=== PATIENT | female | born 1950 | race Caucasian/White ===

== ENCOUNTER → 2016-05-28 | Outpatient (CLI) | payer BC ==
[~2016-05-28] MED LIST: ANTIVERT 25MG25 MG PO; MULTIPLE VITAMI1 CAP PO; NORCO 325 MG-51 TAB PO; PERCOCET 325 MG1 TA2 PO; PROMETHAZINE12.5 M5 PO
== END ==
LOC: MC.RAD 13:58
DX: Z12.31 Encounter for screening mammogram for malignant neoplasm of breast (principal); Z80.3 Family history of malignant neoplasm of breast

== ENCOUNTER → 2017-06-28 | Outpatient (CLI) | payer BC | LOC: MC.RAD 13:20 | DX: Z12.31 Encounter for screening mammogram for malignant neoplasm of breast (principal) ==

== ENCOUNTER → 2018-07-15 | Outpatient (CLI) | payer BC | LOC: MC.RAD 13:28 | DX: Z12.31 Encounter for screening mammogram for malignant neoplasm of breast (principal) ==

== ENCOUNTER 2018-11-18 14:42 | Outpatient (CLI) | payer BC ==
[~2018-11-18] VITALS: Ht 157.5 cm; Wt 55.0 kg
[2018-11-18] MEDS ORDERED: NORVASC 5MG5 MG/TAB PO (15:43)
[2018-11-18] MEDS ORDERED: HCTZ12.5TAB PO (15:43)
[2018-11-18 15:49] VITALS: BP 110/52; PULSE 62; TEMP 98.1
== END 2018-11-18 16:05 | disposition home or self-care (01) ==
LOC: EUO 14:42
DX: M81.0 Age-related osteoporosis without current pathological fracture (principal)
CPT/HCPCS: J3489

== ENCOUNTER → 2019-08-11 | Outpatient (CLI) | payer BC ==
[~2019-08-11] MED LIST changes: +HCTZ12.5TAB PO; +NORVASC 5MG5 MG/TAB PO
== END ==
LOC: MC.RAD 12:51
DX: Z12.31 Encounter for screening mammogram for malignant neoplasm of breast (principal)

== ENCOUNTER → 2019-10-06 | Outpatient (CLI) | payer BC | LOC: COL.RAD 06:57 | DX: M48.02 Spinal stenosis, cervical region (principal); M50.10 Cervical disc disorder with radiculopathy, unspecified cervical region ==

== ENCOUNTER 2019-12-23 14:55 | Outpatient (CLI) | payer BC ==
[~2019-12-23] VITALS: Ht 157.5 cm; Wt 57.8 kg
[2019-12-23] MEDS ORDERED: MOBIC 7.5MG7.5 MG PO (15:18)
[2019-12-23 15:28] VITALS: BP 156/74; PULSE 64; TEMP 98.6
== END 2019-12-23 16:02 | disposition home or self-care (01) ==
LOC: EUO 14:55
DX: M81.0 Age-related osteoporosis without current pathological fracture (principal)
CPT/HCPCS: J3489

== ENCOUNTER → 2020-08-24 | Outpatient (CLI) | payer BC ==
[~2020-08-24] MED LIST changes: +MOBIC 7.5MG7.5 MG PO; -MULTIPLE VITAMI1 CAP PO; +MULTIPLE VITAMI1 TA5 PO
== END ==
LOC: MC.RAD 12:49
DX: Z12.31 Encounter for screening mammogram for malignant neoplasm of breast (principal)

== ENCOUNTER 2020-12-08 15:32 | Outpatient (CLI) | payer BC ==
[~2020-12-08] VITALS: Ht 157.5 cm; Wt 57.6 kg
[2020-12-08 16:17] VITALS: BP 112/62; PULSE 52; TEMP 98.5
== END 2020-12-08 16:42 | disposition home or self-care (01) ==
LOC: EUO 15:32
DX: M81.0 Age-related osteoporosis without current pathological fracture (principal)
CPT/HCPCS: J3489

== ENCOUNTER 2021-05-09 13:14 | Observation (INO) | payer BC ==
[~2021-05-09] VITALS: Ht 152.4 cm; Wt 55.6 kg
[2021-05-09 13:30] LABS: BASO # 0.1 K/mm3 (0.0-0.2); BASO % 0.9 % (0.0-2.0); EOS # 0.1 K/mm3 (0.0-0.7); EOS % 1.3 % (0.0-4.0); GRAN # 4.9 K/mm3 (1.4-6.5); GRAN % 64.6 % (42.2-75.2); HEMATOCRIT 39.9 % (37.0-47.0); HEMOGLOBIN 12.8 g/dl (12.5-16.0); LYMPH # 1.7 K/mm3 (1.2-3.4); LYMPH % 22.6 % (20.0-51.0); MEAN CELL VOLUME 85 fl (80.0-100.0); MEAN CORPUSCULAR HEMOGLOBIN 27 pg (27-31); MEAN CORPUSCULAR HGB CONC 32 g/dl (33.0-37.0); MEAN PLATELET VOLUME 9.8 fl (7.4-10.4); MONO # 0.8 K/mm3 (0.1-0.6); MONO % 10.2 % (1.7-9.3); PLATELET COUNT 213 K/mm3 (130-400); RED BLOOD COUNT 4.67 M/mm3 (4.10-5.30)
[2021-05-09 13:48] LABS: CALCIUM 9.8 mg/dL (8.4-10.2); CREATININE, serum 0.82 mg/dL (0.57-1.11); TOTAL PROTEIN 7.8 gm/dL (6.2-8.1)
[2021-05-09 13:54] LABS: TROPONIN-I 0.015 ng/mL (0.00-0.033)
[2021-05-09 16:39] VITALS: BP 125/92; PULSE 70; TEMP 98.6
[2021-05-09] MEDS ORDERED: RECLAST (16:50)
--- NOTE | 2021-05-09 17:38 | NUR ---
PT ADMITTED TO UNIT. ADMISSION INTAKE AND ASSESSMENT COMPLETED. ORIENTED PT TO ROOM. UPDATED ON POC. PT DENIES ANY NEEDS AT THIS TIME. WILL CONTINUE TO MONITOR.
[2021-05-09 19:49] VITALS: BP 145/70; PULSE 81; TEMP 98.1
--- NOTE | 2021-05-09 21:20 | NUR ---
Patient is resting in bed, alert and oriented x 4, VSS, Reports constant pain in her middle chest since [address] in [address], NSR 70's, Receiving 30ml/hr NS. Troponin resuls WNL. Assessment completed, medications provided. No other needs at this time. Call [facility] within reach.
[2021-05-09 23:06] VITALS: BP 130/66; PULSE 65; TEMP 98.2
[2021-05-10] VITALS (9 sets, daily range): BP systolic 120–146; BP diastolic 56–84; PULSE 62–111; TEMP 97.8–98
[2021-05-10 06:44] LABS: ALBUMIN 3.2 gm/dL (3.4-4.8); BILIRUBIN,TOTAL 0.9 mg/dL (0.2-1.2); CHOLESTEROL RISK RATIO 3.9; CREATININE, serum 0.75 mg/dL (0.57-1.11); MAGNESIUM 1.9 mg/dL (1.6-2.6); POTASSIUM 3.9 mmol/L (3.5-4.5); TOTAL PROTEIN 6.6 gm/dL (6.2-8.1)
[2021-05-10 06:51] LABS: TROPONIN-I 0.01 ng/mL (0.00-0.033)
--- NOTE | 2021-05-10 11:07 | NUR ---
PT ALERT AND ORIENTED UPON ENTRY THIS MORNING. COOPERATIVE AND CALM. REPORTS MILD HEADACHE PAIN. DENIES CHEST PAIN. REPORTS WHEN SHE DOES HAVE CHEST PAIN THAT THE PAIN IS IN THE STERNAL AREA. MEDICATIONS ADMINISTERED AND PT EDUCATION PROVIDED. SHIFT ASSESSMENT COMPLETED. PT WENT DOWN FOR NAKUL SCAN AND RETURNED. RECONNECTED PT TO RUNNING FLUIDS. PT REMAINS NPO UNTIL LEXISCAN RESULTS RETURN. PT UP TO THE BATHROOM TODAY, BUT REPORTS DIFFICULTY HAVING A STOOL. PT REPORTS NO QUESTIONS AT THIS TIME. VITALS STABLE. WILL CONTINUE TO MONITOR.
[2021-05-10] MEDS ORDERED: MYLANTA 150 ML150 M1 PO (12:19)
[2021-05-10] MEDS ORDERED: PROTONIX 40MG T40 MG PO (12:20)
--- NOTE | 2021-05-10 14:25 | NUR ---
DISCHARGE EDUCATION AND INTRUCTIONS PROVIDED AND REVIEWED WITH PT. RIGHT AC IV REMOVED, TIP INTACT. PT SELF DRESSED AND WHEELED OUT BY [employer]TER AND REPAIRER. NO CONCERNS AT THIS TIME.
== END 2021-05-10 14:25 | disposition home or self-care (01) ==
LOC: COL.ER 13:14 → MEDICAL 14:43
PROVIDERS: Emergency Medicine; ADMIT Internal Medicine
DX: R07.89 Other chest pain (principal); I10 Essential (primary) hypertension; R74.01 Elevation of levels of liver transaminase levels; Z79.899 Other long term (current) drug therapy; Z79.82 Long term (current) use of aspirin
CPT/HCPCS: A9500; G0378; J2785; J7030

== ENCOUNTER → 2021-05-26 | Outpatient (CLI) | payer BC ==
[~2021-05-26] MED LIST changes: +MYLANTA 150 ML150 M1 PO; +PROTONIX 40MG T40 MG PO; +RECLAST
== END ==
LOC: COL.RAD 09:20
DX: K76.9 Liver disease, unspecified (principal)